=== PATIENT | male | born 1960 ===

== ENCOUNTER 2016-11-29 06:19 | Inpatient (IN) | payer OTHER ==
--- NOTE | 2016-11-17 10:48 | GHP ---
[f rep st] PREOP HISTORY AND PHYSICAL DATE OF ADMISSION: He will be an a.m. admission for surgery on November 29, 2016. PROBLEM: Right knee arthritis. HISTORY OF PRESENT ILLNESS: The patient is a 56-year-old man admitted for right total knee arthroplasty. He has a long history of progressive degenerative arthritis in his right knee. I gave him a Supartz injection in the knee in May of 2016. That helped for about a month. His knee has become very painful. If he does a lot of walking, the knee is painful and swells. His pain is worse going up and down stairs. He cannot do any strenuous activity because it aggravates his pain. He has had a previous open lateral meniscectomy when he was 18 years old. He has failed nonsurgical treatment. His symptoms and limitations are quite significant. He will undergo a right total knee arthroplasty. PAST MEDICAL HISTORY: Excellent general health. No history of heart disease, stents, DVT or hepatitis. No previous history of serious MRSA staph infections. CURRENT MEDICATIONS: Levocetirizine for allergies. He also uses Omnaris cortisone nasal spray. ALLERGIES: Drug allergies: His mother told him that he had a reaction to penicillin as an . He also developed a rash with erythromycin. Metal allergies: None. Latex allergy: None. 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 He works for [employer]. He does not smoke cigarettes. He occasionally drinks alcohol. He is . He does not have any other artificial joints. FAMILY HISTORY: Positive for heart disease. PHYSICAL EXAMINATION: VITAL SIGNS: Height 5 feet 8 inches. Weight 235 pounds. BMI 35.7. HEENT: Eyes: Conjunctivae and sclerae are clear. Pupils are round and reactive. Mouth: Good oral hygiene. No loose teeth. CHEST: Clear. HEART: Regular rhythm. No murmurs. EXTREMITIES: Pertinent findings are limited to his right knee. He has well-developed thigh musculature. He lacks 5 degrees of full extension and flexes to 100 degrees. A moderate effusion is present. His ligaments are stable. IMAGING: Films from May 01, 2016, show advanced lateral compartment degenerative arthritis and significant patellofemoral arthritis. IMPRESSION ON ADMISSION: Right knee degenerative arthritis, primarily involving the lateral compartment. PLAN: He will undergo a right total knee arthroplasty. The surgery has been described to him including the risks, complications, expectations, and recovery time. All his questions have been answered, and he consents to surgery. I have stressed the importance of postoperative physical therapy. I have advised him that a small percentage of people do not get a good result with a total knee replacement. /[id number]/MODL MTDD
[2016-11-27 12:31] LABS: % IMMATURE GRANULYOCYTES 0.1 % (0.0-1.1); ABSOLUTE IMMATURE GRANULOCYTES 0.01 10^3/uL (0.00-0.10); ADD DIFF? NO; ADD MORPH? NO; ADD SCAN? NO; ATYPICAL LYMPHOCYTE FLAG 0 (0-99); FRAGMENT RBC FLAG 0 (0-99); HEMATOCRIT 52.3 % (40.0-51.0); HEMOGLOBIN 17.2 g/dL (13.7-17.5); LEFT SHIFT FLG 0 (0-99); LIPEMIA HEMOLYSIS FLAG 80 (0-99); MEAN CELL HEMOGLOBIN 28.7 pg (27.9-34.1); MEAN CELL HEMOGLOBIN CONCENTR. 32.9 g/dL (32.4-36.7); MEAN CELL VOLUME 87.2 fL (81.5-99.8); MEAN PLATELET VOLUME 9.6 fL (8.7-11.7); PLATELET CLUMPS FLAG 0 (0-99); PLATELET COUNT 219 10^3/uL (150-400); RED CELL DISTRIBUTION WIDTH 13.6 % (11.5-15.2)
[~2016-11-29 06:19] MED LIST: ACETAMINOPHEN 325 MG TAB PO ONE; CHLORHEXIDINE GLUC HIBICLENS 118 ML BTL TP ONE; DEXAMETHASONE 4 MG/ML VIAL IVP ONE; FAMOTIDINE 20 MG TAB PO ONE; POVIDONE-IODINE 20 ML in SODIUM CL IRRIG SOLUTION 500 ML IRR ONE; ROPI/epiNEPH/KETOROLAC JOINT COCKTAIL IU ONE; TRANEXAMIC ACID 1,100 MG in NS 100 ML IV ONE
[2016-11-29] MEDS ORDERED: ceFAZolin 2 GM/DEXTROSE 100 ML IV ONE (07:00)
[2016-11-29] MEDS ORDERED: ceFAZolin 1 GM/5 ML SYR ONE (07:10)
[2016-11-29] MEDS ORDERED: LIDOCAINE 1% 5 ML SDV ID PRN (07:22)
[2016-11-29] MEDS ORDERED: LR 1,000 ML IV ONE (07:22)
[2016-11-29] MEDS ORDERED: BACITRACIN 50,000 UNITS/10 ML SYR IRR ONE (07:51)
[2016-11-29] MEDS ORDERED: MIDAZOLAM 2 MG/2 ML VIAL ONE (08:43)
[2016-11-29] MEDS ORDERED: LIDOCAINE 2% 5 ML SDV ONE (08:55)
[2016-11-29] MEDS ORDERED: PROPOFOL 200 MG/20 ML VIAL ONE (08:55)
[2016-11-29] MEDS ORDERED: PROPOFOL/EMULSION 500 MG/50 ML BOTTLE IV ONE ×2 (08:55→09:53)
[2016-11-29] MEDS ORDERED: ONDANSETRON 4 MG/2 ML VIAL ONE (09:48)
[2016-11-29] MEDS ORDERED: ROPIVACAINE HCL 150 MG/30 ML INJ ONE (09:52)
--- NOTE | 2016-11-29 10:43 | POSTOPPROG ---
Post Op Note Date of Operation: 11/29/16 Surgeon: Pardeep Cuellar [place] Farmer: Tate Anesthesiologist: Rhiannon Anesthesia: IV Sedation, Spinal Post-op Diagnosis: R knee arthritis Procedure: R TKA Inf/Abcess present in the surg proc area at time of surgery?: No EBL: 50-100
[2016-11-29] MEDS ORDERED: BISACODYL 10 MG SUPP PR PRN (10:57)
[2016-11-29] MEDS ORDERED: CYCLOBENZAPRINE 10 MG TAB PO PRN (10:57)
[2016-11-29] MEDS ORDERED: TEMAZEPAM 15 MG CAP PO PRN (10:57)
[2016-11-29] MEDS ORDERED: NS 500 ML IV PRN (10:57)
[2016-11-29] MEDS ORDERED: diphenhydrAMINE 25 MG CAP PO PRN (10:57)
[2016-11-29] MEDS ORDERED: PHARMACY PAIN CONSULT 1 EA MISC PRN (10:57)
[2016-11-29] MEDS ORDERED: KETOROLAC 30 MG/1 ML SDV IVP PRN (10:57)
[2016-11-29] MEDS ORDERED: traMADol 50 MG TAB PO PRN (10:57)
[2016-11-29] MEDS ORDERED: LACTULOSE 20 GM/30 ML UDCUP PO PRN (10:57)
[2016-11-29] MEDS ORDERED: POLYETHYLENE GLYCOL 3350 17 GM PKT PO PRN (10:57)
[2016-11-29] MEDS ORDERED: METOCLOPRAMIDE 10 MG/2 ML VIAL IVP PRN (10:57)
[2016-11-29] MEDS ORDERED: DIPHENOXYLATE/ATROPINE LOMOTIL 1 TAB PO PRN (10:57)
[2016-11-29] MEDS ORDERED: ONDANSETRON DISINTEGRATING 4 MG TAB PO PRN (10:57)
[2016-11-29] MEDS ORDERED: MAGNESIUM HYDROXIDE 30 ML UDCUP PO PRN (10:57)
[2016-11-29] MEDS ORDERED: PROMETHAZINE HCL 25 MG/ML INJ IVP PRN (10:57)
[2016-11-29] MEDS ORDERED: ONDANSETRON 4 MG/2 ML VIAL IVP PRN (10:57)
[2016-11-29] MEDS ORDERED: PROMETHAZINE HCL 25 MG SUPPR PR PRN (10:57)
[2016-11-29] MEDS ORDERED: LR 1,000 ML IV SCH (11:00)
--- NOTE | 2016-11-29 11:37 | GOP ---
[f rep st] OPERATIVE REPORT DATE OF OPERATION: 11/29/2016 SURGEON: Pardeep Cuellar MD [employer] OPERATOR: Jordan Zamora [facility] and Dez Bray, PAC. ANESTHESIA: A combination of Marcaine spinal and IV sedation. ANESTHESIOLOGIST: Trev Jurado MD. PREOPERATIVE DIAGNOSIS: Right knee degenerative arthritis. POSTOPERATIVE DIAGNOSIS: Right knee degenerative arthritis. PROCEDURE PERFORMED: On 11/29/2016, a right total knee arthroplasty, cemented, Levi and Nephew Bobby rney II, posterior stabilized. FINDINGS: ESTIMATED BLOOD LOSS: Following inflation of the tourniquet was about 100 cc. The sponge and needle count were correct on 2 occasions. The patient was awakened from anesthesia, transferred to his hospital [facility], and taken to PACU in s atisfactory condition. There were no recognized intraoperative complications. In the recovery room , for additional postoperative pain control, Dr. Jurado performed an adductor canal block. Jordan Zamora [facility] and Magdiel Bray PAC acted as surgical assistants. Their assistance was a medic al necessity. DESCRIPTION OF PROCEDURE: The patient was given 2 g of IV Ancef preoperatively within 60 minutes of surgery. He also received IV tranexamic acid at a dose of 10 mg/kg. He was placed on the operatin g room table and given spinal anesthesia with Marcaine by Dr. Jurado. He was then placed supi ne and given IV sedation. A Powers catheter was not used. A DAVID stocking and SCD were placed on the nonoperative leg. His right lower extremity was prepped with ChloraPrep from the upper thigh tourn iquet to the tips of the toes. It was draped free using sterile sheets, stockinette, and Ioban plas tic adhesive drape. The lower leg was wrapped with compressive Coban. The leg was exsanguinated wi th elevation and a 6-inch compressive wrap, and the pneumatic tourniquet was inflated to 300 mmHg. The [employer] time-out was performed to verify the correct patient, identity, and th e correct surgical side. The [place] time-out was also performed. The [facility] leg holding device was sterilely attached to the operating room table and used throughou t the procedure to help position the knee. A straight midline incision was made centered on the pat lucia. Subcutaneous tissues were sharply divided and hemostasis was obtained using electrocautery. A medial subcutaneous flap was developed, and the capsule and synovium were opened in medial parapat ellar fashion. Extensive degenerative changes were present, particularly in the lateral compartment and patellofemoral joint. The medial capsule and periosteum were elevated off the rim of the media l tibial plateau all the way around to the posteromedial corner. His medial collateral ligament was released just enough to balance the medial side of the knee. In order to improve exposure, I prepared the patella first. The original thickness of the patella w as measured. Peripheral osteophytes were removed. I cut a flat surface on the back of the patella. The patella was sized for a 38 mm resurfacing component. I removed enough bone from the patella s uch that the remaining bone plus the thickness of the patellar component recreated the original thic kness of the patella. The composite thickness was 22 mm. The intramedullary alignment guide system was used to set up the distal femoral cut. The distal fem ur was cut in 5 degrees of valgus. Because of a significant preoperative flexion contracture, I mad e a +2 mm cut on the distal femur. The sizing jig was used to determine proper femoral sizing. I s hifted the size 7 jig anteriorly 2 mm in order to accommodate a size 7 femoral component without not shazia the anterior cortex. The 5-in-1 cutting block was applied, and the anterior and posterior con dylar cuts and chamfer cuts were made. The final jig was used to remove the central portion of the distal femur to accommodate the posterior stabilized femoral component. I was careful to determine proper rotation by referencing off [place]ites[place] line. Each cut was checked for accuracy before and af ter it was made. The femur was sized for a size 7 posterior stabilized component. Next the tibia was prepared. The proximal tibial cut was made using the extramedullary alignment gu oliva system. The cut was made in a few degrees of posterior slope. I was careful to achieve proper varus valgus alignment and proper rotation. The posterior compartment was cleared of meniscal remna nts. Osteophytes were removed from the back of the condyles. I checked the flexion and extension g aps, and they were equal and balanced. The tibia was sized for a size 7 component. With the trial components in place, I selected a 9 mm p olyethylene posterior stabilized tibial insert. The knee came to full extension and flexed to 120 d egrees. There was no overstuffing in flexion. The collateral ligaments were stable and balanced in 90 degrees of flexion and full extension. The trial patellar button was applied, and tracking was checked. Tracking was excellent without any digital pressure. Forty milliliters of the joint anesthetic cocktail was injected into the posterior capsule, the diandra articular structures, the quadriceps muscle and tendon areas, and the subcutaneous tissues along the skin edges. A 2nd dose of IV tranexamic acid was given at a dose of 10 mg/kg. The surfaces were prepared for cementing. They were carefully cleaned with the pulsating lavage irr igation and thoroughly dried. The CarboJet device was used to blow dry the cancellous surfaces. A double batch of methylmethacrylate cement with tobramycin was mixed. While it was still in a semili quid state, all [address] components were cemented in place. Excess cement was removed before it hardened. The 9 mm trial tibial insert was re-tried and was the proper thickness. The actual component was i nserted and locked into place. The knee was thoroughly irrigated 1 final time with a dilute Betadin e solution. The tourniquet was deflated. The total tourniquet time was 58 minutes. The vastus medialis portion of the extensor mechanism was repaired with several interrupted figure-o f-eight #2 FiberWire sutures. The capsule and synovium were closed first with multiple interrupted [id number] 0 PDS sutures, followed by a running #2 barbed Ethicon Stratafix PDO suture. Subcut aneous tissues were closed with a running 0 barbed Ethicon Stratafix Monoderm suture. The skin was closed with a running 3-0 barbed Ethicon Stratafix Monoderm subcuticular suture. The skin was keena d with half-inch Steri-Strips. The wound was covered with Xeroform gauze and flat 4 x 4's. The kne e was wrapped with Kerlix and 6-inch compressive wrap. A long-leg DAVID stocking and SCD were applied followed by the cooling device. The patient wore a stocking and SCD on the opposite leg during the procedure. I used a size 7 cemented Levi and Nephew Oxinium posterior stabilized femoral component, a size 7 c emented tibial base plate, a 9 mm posterior stabilized tibial insert, and a 38 mm cemented round all -polyethylene resurfacing patellar component. /[id number]/MODL
[2016-11-29] MEDS ORDERED: ACETAMINOPHEN 325 MG TAB PO SCH (12:00)
[2016-11-29 12:16] VITALS: RESP 15
[2016-11-29] MEDS ORDERED: TRANEXAMIC ACID 650 MG TAB PO SCH (13:00)
[2016-11-29] MEDS: oxyCODONE IR 5 MG TAB PO PRN ×2 (13:03→16:10)
--- NOTE | 2016-11-29 13:34 | PDIAF ---
- Diagnosis Diagnosis: right knee arthritis Code Status: Full Code - Medication Management Discharge Medications: Medications to Continue on Transfer Ciclesonide [Omnaris] 1 spray EACHNARE DAILY 11/21/16 [Last Taken 11/28/16] Levocetirizine Dihydrochloride [Xyzal] 5 mg PO DAILY 11/21/16 [Last Taken ] Aleve 220 MG (*) 1 tab DAILY 11/24/16 [Last Taken 11/23/16] Acetaminophen [Tylenol 325mg (*)] 650 mg PO Q6HRS #0 tab 11/29/16 [Last Taken Unknown] Aspirin [Aspirin 325 mg (*)] 325 mg PO DAILY #21 tab 11/29/16 [Last Taken Unknown] Ferrous Sulfate [Slow Fe 140 MG (*)] 140 mg PO DAILY #30 tab.er 11/29/16 [Last Taken Unknown] Ondansetron Odt [Zofran Odt 4 mg (*)] 4 mg PO Q4HRS PRN #0 tab 11/29/16 [Last Taken Unknown] oxyCODONE IR [Oxycodone Ir (*)] 5 - 10 mg PO Q3HRS PRN #0 tab 11/29/16 [Last Taken Unknown] traMADol [Ultram 50 mg (*)] 50 mg PO Q6HRS PRN #0 tab 11/29/16 [Last Taken Unknown] Discharge Medications: Refer to the Discharge Home Medication list for PRN reason. - Orders Services needed: Home Care, Physical Therapy Home Care Face to Face: I certify that this patient was under my care and that I had the required [id number] encounter meeting the encounter requirements on the discharge day. My findings support the fact that the patient is homebound as defined in CMS Chapter 7 Medicare Benefits Manual 30.1.1, The condition of the patient is such that there exists a normal inability to leave home and consequently, leaving home would require a considerable and taxing effort. Diet Recommendation: no restrictions on diet Diet Texture: Regular Texture Diet Richard Stockings Discontinue Date: 1 week Wound Care Instructions: keep clean and dry. You may shower. Activity/Weight Bearing Restrictions: as tolerated. Equipment: Zero knee device while in bed as tolerated. - Follow Up Care Current Providers and Referrals: NONE *PRIMARY CARE P,. [Primary Care Provider] - Pardeep Cuellar MD [Medical Doctor] - 12/14/16 10:00 am
[2016-11-29] MEDS ORDERED: ceFAZolin 2 GM in D5W 100 ML IV SCH (14:00)
[2016-11-29] MEDS ORDERED: ceFAZolin 2 GM/DEXTROSE 100 ML IV SCH (14:00)
[2016-11-29 15:43] VITALS: TEMP 97.4; O2SAT 92
[2016-11-29 16:00] VITALS: BP 137/87; PULSE 67
[2016-11-29] MEDS ORDERED: FAMOTIDINE 20 MG TAB PO SCH (21:00)
[2016-11-29] MEDS ORDERED: ASPIRIN 325 MG TAB PO SCH (21:00)
[2016-11-29] MEDS ORDERED: SENNOSIDES/DOCUSATE SODIUM TAB PO SCH (21:00)
--- NOTE | 2016-11-30 08:05 | GDS ---
PREOPERATIVE DIAGNOSIS: Right knee severe degenerative arthritis. DISCHARGE DIAGNOSIS: Right knee severe degenerative arthritis. OPERATION PERFORMED: November 28, 2016, right total knee arthroplasty. POSTOPERATIVE COMPLICATIONS: None. CONDITION ON DISCHARGE: Improved. DESCRIPTION OF HOSPITAL COURSE: The patient was admitted to the hospital on the morning of surgery. His admission white blood cell count was 7550. Hemoglobin and hematocrit were 17.2 and 52.3. The same day under combination of spinal anesthesia with Marcaine, IV sedation and an adductor canal bl ock, he underwent a right total knee arthroplasty. Postoperatively, he was treated with multimodal DVT prophylaxis including aspirin. He was seen by Physical Therapy and made excellent progress on t day of surgery with ambulation and stairs. By the time of discharge, he was afebrile and was ind ependent walking. DISPOSITION: The patient is discharged to his home. He will have home physical therapy. He may pr ogress to full weightbearing on the right as tolerated. Continue DAVID stockings for 1 week. Continu e aspirin 325 mg p.o. daily for 21 days. He has prescriptions for oxycodone and tramadol for pain c ontrol. I will see him back in the office in 10-12 days. If there are any problems, he is to call me at the office. /[id number]/MODL
[2016-11-30] MEDS ORDERED: CICLESONIDE EACHNARE SCH ×2 (09:00)
[2016-11-30] MEDS ORDERED: NON-FORMULARY NEW DRUG (Levocetirizine Dihydrochloride [Xyzal] 5 MG) PO SCH (09:00)
[2016-11-30] MEDS ORDERED: CETIRIZINE 10 MG TAB PO SCH (09:00)
[2016-11-30] MEDS ORDERED: FERROUS SULFATE 140 MG TAB.ER PO SCH (09:00)
== END 2016-11-29 17:02 | disposition home health service (06) | DRG 470 ==
LOC: F3N 06:19
PROVIDERS: ADMIT Orthopaedic Surgery; ATTEND Orthopaedic Surgery
PROC: 0SRC0J9 Replacement of Right Knee Joint with Synthetic Substitute, Cemented, Open Approach (ICD-10-PCS; principal; 2016-11-29 08:30)
DX: M17.11 Unilateral primary osteoarthritis, right knee (principal); I10 Essential (primary) hypertension
CPT/HCPCS: 97161-GP; C1713; J0171; J0690; J1100; J1885; J2250; J2405; J2704; J2795